=== PATIENT | male | born 1970 | race Two or more races ===

== ENCOUNTER 2017-12-24 08:51 | Inpatient (IN) | payer OTHER ==
[2017-12-24 10:12] VITALS: BMI 29.6
--- NOTE | 2017-12-24 11:59 | HP ---
CIWA Score - CIWA Score Nausea/Vomitin-Mild Nausea/No Vomiting Muscle Tremors: 4-Moderate,w/Arms Extend Anxiety: 4-Mod. Anxious/Guarded Agitation: 4-Moderately Restless Paroxysmal Sweats: 3 Orientation: 0-Oriented Tacttile Disturbances: 0-None Auditory Disturbances: 0-None Visual Disturbances: 0-None Headache: 2-Mild CIWA-Ar Total Score: 18 Admission ROS S - HPI Chief Complaint: I am here detox from alcohol withdrawals. Allergies/Adverse Reactions: Allergies Allergy/AdvReac Type Severity Reaction Status Date / Time No Known Allergies Allergy Verified 12/24/17 11:53 History of Present Illness: pt is a 47yr old male with a history of alcohol dependence seeking detox for treatment. pt also states that his doctor diagnosed him with a fatty liver but unsure all the detail and what medication he is suppose to be on. Pt is also unsure what hypertensive medication he suppose to take. Exam Limitations: No Limitations - Ebola screening Have you traveled outside of the country in the last 21 days: No Have you had contact with anyone from an Ebola affected area: No Have you been sick,other than usual withdrawal symptoms: No Do you have a fever: No - Review of Systems Constitutional: Chills, Diaphoresis, Night Sweats, Changes in sleep, Unintentional Wgt. Loss EENT: reports: Blurred Vision, Tearing, Nose Congestion Respiratory: reports: No Symptoms reported, Productive cough GI: reports: Nausea, Poor Appetite, Poor Fluid Intake, Indigestion : reports: No Symptoms Reported Musculoskeletal: reports: Back Pain Integumentary: reports: Flushing, Sweating Neuro: reports: Headache, Tingling, Tremors Endocrine: reports: Excessive Sweating, Flushing, Intolerance to Cold, Intolerance to Heat Hematology: reports: No Symptoms Reported Psychiatric: reports: Judgement Intact, Mood/Affect Appropiate, Orientated x3, Agitated, Anxious Other Systems: Reviewed and Negative Patient History - Patient Medical History Hx Anemia: No Hx Asthma: No Hx Chronic Obstructive Pulmonary Disease (COPD): No Hx Cancer: No Hx Cardiac Disorders: No Hx Congestive Heart Failure: No Hx Hypertension: Yes Hx Hypercholesterolemia: No Hx Pacemaker: No HX Cerebrovascular Accident: No Hx Seizures: No Hx Dementia: No Hx Diabetes: No Hx Gastrointestinal Disorders: No Hx Liver Disease: No Hx Genitourinary Disorders: No Hx Sexually Transmitted Disorders: No Hx Renal Disease (ESRD): No Hx Thyroid Disease: No Hx Human Immunodeficiency Virus (HIV): No (negative) Hx Hepatitis C: No Hx Depression: Yes Hx Suicide Attempt: No (denies S/H ideation) Hx Bipolar Disorder: No Hx Schizophrenia: No - Patient Surgical History Past Surgical History: No - PPD History Previous Implant?: Yes Documented Results: Negative w/o proof PPD to be Administered?: Yes - Reproductive History Patient is a Female of Child Bearing Age (11 -55 yrs old): No - Smoking Cessation Smoking history: Never smoked Have you smoked in the past 12 months: No Hx Chewing Tobacco Use: No Initiated information on smoking cessation: No - Substance & Tx. History Hx Alcohol Use: Yes Hx Substance Use: No Substance Use Type: Alcohol Hx Substance Use Treatment: No - Substances Abused Alcohol Route: Oral Frequency: Daily Amount used: 3 pts vodka Age of first use: 17 Date of Last Use: 12/22/17 Family Disease History - Family Disease History Family History: Denies Admission Physical Exam [facility] - Vital Signs Vital Signs: Vital Signs - 24 hr 12/24/17 10:10 Temperature 98.8 F Pulse Rate 125 H Respiratory 20 Rate Blood Pressure 168/111 - Physical General Appearance: Yes: Appropriately Dressed, Moderate Distress, Obese, Tremorous, Irritable, Sweating, Anxious HEENTM: Yes: Normal Voice Respiratory: Yes: Lungs Clear, Normal Breath Sounds, No Respiratory Distress Neck: Yes: No masses,lesions,Nodules Breast: Yes: Within Normal Limits Cardiology: Yes: Regular Rhythm, Regular Rate, S1, S2, Tachycardia Abdominal: Yes: Normal Bowel Sounds, Non Tender, Soft Genitourinary: Yes: Within Normal Limits Back: Yes: Normal Inspection Musculoskeletal: Yes: Back pain Extremities: Yes: Normal Capillary Refill, Non-Tender, Tremors Neurological: Yes: psych assistant II-XII NML intact, Fully Oriented, Normal Response Integumentary: Yes: Diaphoresis Lymphatic: Yes: Within Normal Limits - Diagnostic (1) Alcohol dependence with uncomplicated withdrawal Current Visit: Yes Status: Chronic (2) Hypertension Current Visit: Yes Status: Acute Qualifiers: Hypertension type: essential hypertension Qualified Code(s): I10 - Essential (primary) hypertension Cleared for Admission [facility] - Detox or Rehab [facility] Level of Care: Medically Managed Detox Regimen/Protocol: Librium BHS Breath Alcohol Content Breath Alcohol Content: 0 Urine Drug Screen - Results Drug Screen Negative: No Urine Drug Screen Results: BZO-Benzodiazepines
[2017-12-24] MEDS ORDERED: MENTHOL/PHENOL 1 EACH UD MM PRN (12:10)
[2017-12-24] MEDS ORDERED: hydrOXYzine PAMOATE 50 MG CAPSULE (FP) PO PRN (12:10)
[2017-12-24] MEDS ORDERED: guaiFENesin/D-METHORPHAN HB 10 ML UNIT-DOSE CUPS PO PRN (12:10)
[2017-12-24] MEDS ORDERED: LOPERAMIDE HCL 2 MG CAPSULE PO PRN (12:10)
[2017-12-24] MEDS ORDERED: MAGNESIUM HYDROX 2400MG/30ML ORAL SUSPENSION 30 ML CUP PO PRN (12:10)
[2017-12-24] MEDS ORDERED: MAGNESIUM CITRATE 300 ML BOTTLE PO PRN (12:10)
[2017-12-24] MEDS ORDERED: chlordiazePOXIDE HCL 25 MG CAPSULE PO PRN (12:10)
[2017-12-24] MEDS ORDERED: MAG HYDROX/AL HYDROX/SIMETH 30 ML UNIT-DOSE CUP PO PRN (12:10)
[2017-12-24] MEDS ORDERED: P-EPHED 60MG/TRIPROLIDI 2.5MG TABLET PO PRN (12:10)
[2017-12-24] MEDS ORDERED: ACETAMINOPHEN 325 MG TABLET (FP) PO PRN (12:10)
[2017-12-24] MEDS ORDERED: chlordiazePOXIDE HCL 25 MG CAPSULE PO ONE (12:32)
[2017-12-24] MEDS ORDERED: cloNIDine HCL 0.1 MG TABLET PO ONE (12:32)
--- NOTE | 2017-12-24 13:19 | CONSULT ---
[facility] Psychiatric Consult - Data Date of interview: 12/24/17 Admission source: [facility] Identifying data: This is 47 years old male, [place] speaking, with no psychiatric hospitalization history, intoxicated with Alcohol, Nicotine, Benzodiazepins Substance Abuse History: - Smoking Cessation. Smoking history: Never smoked. Have you smoked in the past 12 months: No. Hx Chewing Tobacco Use: No. Initiated information on smoking cessation: No. - Substance & Tx. History. Hx Alcohol Use: Yes. Hx Substance Use: No. Substance Use Type: Alcohol. Hx Substance Use Treatment: No. - Substances Abused. Alcohol. Route: Oral. Frequency: Daily. Amount used: 3 pts vodka. Age of first use: 17. Date of Last Use: 12/22/17 Medical History: HTN Psychiatric History: DENIES P[AST PSYCHIATRIC HISTORY, REPORTS NO MEDICATIONS TAKING PRIOR TO ADMISSION Physical/Sexual Abuse/Trauma History: Denies Additional Comment: Observation. Detox Unit Care Protocol Mental Status Exam - Mental Status Exam Alert and Oriented to: Person Cognitive Function: Fair Patient Appearance: Unkempt Mood: Apprehensive Affect: Mood Congruent Patient Behavior: Cooperative Speech Pattern: Appropriate Voice Loudness: Mildly Soft/Quiet Thought Process: Goal Oriented Thought Disorder: Being Controlled Hallucinations: Denies Suicidal Ideation: Denies Homicidal Ideation: Denies Insight/Judgement: Fair Sleep: Difficulty falling asleep Appetite: Weight gain Muscle strength/Tone: Normal Gait/Station: Normal Additional Comments: Observation. Detox Unit Care Protocol Psychiatric Findings - Problem List ([place] 1, 2,3) (1) Alcohol-induced anxiety disorder Current Visit: Yes Status: Acute (2) Nicotine dependence Current Visit: Yes Status: Acute (3) Drug-induced mood disorder Current Visit: Yes Status: Suspected (4) Hypertension Current Visit: Yes Status: Acute Qualifiers: Hypertension type: essential hypertension Qualified Code(s): I10 - Essential (primary) hypertension - Initial Treatment Plan Initial Treatment Plan: Observation. Detox Unit Care Protocol
--- NOTE | 2017-12-24 17:41 | EKG ---
Test Reason : Blood Pressure : / mmHG Vent. Rate : 101 BPM Atrial Rate : 101 BPM P-R Int : 220 ms QRS Dur : 072 ms QT Int : 366 ms P-R-T Axes : 064 002 033 degrees QTc Int : 474 ms SINUS TACHYCARDIA WITH 1ST DEGREE A-V BLOCK NONSPECIFIC ST AND T WAVE ABNORMALITY ABNORMAL ECG NO PREVIOUS ECGS AVAILABLE Confirmed by JESU EDGE MD ([id number]) on 12/24/2017 5:41:30 PM Referred By: Confirmed By:JESU EDGE MD
[2017-12-24 18:06] LABS: URINE APPEARANCE CLEAR; URINE BILIRUBIN NEGATIVE (NEGATIVE); URINE BLOOD NEGATIVE (NEGATIVE); URINE COLOR YELLOW; URINE GLUCOSE (UA) NEGATIVE (NEGATIVE); URINE KETONE TRACE (NEGATIVE); URINE LEUK ESTERASE NEGATIVE (NEGATIVE); URINE NITRITE NEGATIVE (NEGATIVE); URINE UROBILINOGEN NEGATIVE mg/dL (0.2-1.0)
[2017-12-24 18:08] LABS: URINE PROTEIN 1+ (NEGATIVE)
[2017-12-24 18:10] LABS: URINE MUCUS RARE
[2017-12-24] MEDS: chlordiazePOXIDE HCL 25 MG CAPSULE PO SCH ×2 (18:11→22:19)
[2017-12-24] MEDS: THIAMINE HCL 100 MG TABLET (FP) PO SCH (22:19)
[2017-12-25] MEDS: chlordiazePOXIDE HCL 25 MG CAPSULE PO SCH ×4 (05:57→22:26)
--- NOTE | 2017-12-25 09:50 | PN ---
S CIWA - CIWA Score Nausea/Vomitin Muscle Tremors: 3 Anxiety: 3 Agitation: 3 Paroxysmal Sweats: 1-Minimal Palms Moist Orientation: 0-Oriented Tacttile Disturbances: 1-Very Mild Itch/Numbness Auditory Disturbances: 1-Very Mild Visual Disturbances: 0-None Headache: 2-Mild CIWA-Ar Total Score: 17 BHS Progress Note (SOAP) Subjective: ALERT,IRRITABLE,ANXIOUS,INTERRUPTED SLEEP,TREMOR Objective: 12/25/17 09:48 Vital Signs Temperature 98.8 F 12/25/17 06:00 Pulse Rate 89 12/25/17 06:00 Respiratory Rate 18 12/25/17 06:00 Blood Pressure 142/90 12/25/17 06:00 O2 Sat by Pulse Oximetry (%) EKG SINUS TACHYCARDIA 101/MIN NO CHEST PAIN,NO SOB,NO DIZZINESS Laboratory Last Values Urine Color Yellow 12/24/17 16:00 Urine Appearance Clear 12/24/17 16:00 Urine pH 6.0 (5.0-8.0) 12/24/17 16:00 Ur Specific [place] 1.025 (1.001-1.035) 12/24/17 16:00 Urine Protein 1+ (NEGATIVE) H 12/24/17 16:00 Urine Glucose (UA) Negative (NEGATIVE) 12/24/17 16:00 Urine Ketones Trace (NEGATIVE) H 12/24/17 16:00 Urine Blood Negative (NEGATIVE) 12/24/17 16:00 Urine Nitrite Negative (NEGATIVE) 12/24/17 16:00 Urine Bilirubin Negative (NEGATIVE) 12/24/17 16:00 Urine Urobilinogen Negative mg/dL (0.2-1.0) 12/24/17 16:00 Ur Leukocyte Esterase Negative (NEGATIVE) 12/24/17 16:00 Urine WBC (Auto) 2 /hpf (3-5) 12/24/17 16:00 Urine RBC (Auto) 3 /hpf (0-3) 12/24/17 16:00 Urine Mucus Rare 12/24/17 16:00 HIV 1&2 Antibody Screen Negative 12/24/17 12:35 HIV P24 Antigen Negative 12/24/17 12:35 LABS PENDING Assessment: 12/25/17 09:49 WITHDRAWAL SYMPTOM Plan: CONTINUE DETOX
[2017-12-25 10:30] LABS: HEMATOCRIT 42.1 % (35.4-49); HEMOGLOBIN 13.3 GM/dL (11.7-16.9); MCH 28.7 pg (25.7-33.7); MCHC 31.7 g/dl (32.0-35.9); MEAN CELL VOLUME 90.6 fl (80-96); MEAN PLT VOLUME 8.1 fl (7.5-11.1); PLATELET COUNT 144 K/MM3 (134-434); RBC 4.64 M/mm3 (4.00-5.60); RDW 16.3 % (11.9-15.9); WHITE BLOOD COUNT 7.3 K/mm3 (4.0-10.0)
[2017-12-25 10:35] LABS: CHLORIDE 102 mmol/L (98-107); POTASSIUM 3.5 mmol/L (3.5-5.1); SODIUM 139 mmol/L (136-145)
[2017-12-25] MEDS: PRENATAL VITAMINS W/ FOLIC ACID TABLET (FP) PO SCH (10:45)
[2017-12-25 10:58] LABS: ALBUMIN 3.9 g/dl (3.4-5.0); ALK PHOS 76 U/L (45-117); ANION GAP 11 (8-16); BILIRUBIN,TOTAL 1.3 mg/dL (0.2-1.0); BLOOD UREA NITROGEN 5 mg/dL (7-18); CO2 26 mmol/L (21-32); CREATININE 0.8 mg/dL (0.7-1.3); GLUCOSE,RANDOM 120 mg/dL (74-106); SGOT/AST 50 U/L (15-37); SGPT/ALT 33 U/L (12-78)
[2017-12-25] MEDS ORDERED: PNEUMOC 13-VAL CONJ-DIP CRM/PF 0.5 ML DISP.SYRIN IM ONE (12:00)
[2017-12-25] MEDS ORDERED: PNEUMOCOCCAL 23 VACCINE 0.5 ML VIAL IM ONE (12:00)
[2017-12-25] MEDS ORDERED: FLU VACCINE QUAD 60 MCG/0.5 ML (MDV 17-18) IM ONE (12:00)
[2017-12-25] MEDS: IBUPROFEN 400 MG TABLET (FP) PO PRN (12:48)
[2017-12-25] MEDS: THIAMINE HCL 100 MG TABLET (FP) PO SCH (22:26)
[2017-12-26] MEDS: chlordiazePOXIDE HCL 25 MG CAPSULE PO SCH ×2 (05:51→10:41)
[2017-12-26] MEDS: PRENATAL VITAMINS W/ FOLIC ACID TABLET (FP) PO SCH (10:41)
--- NOTE | 2017-12-26 10:47 | PN ---
S CIWA - CIWA Score Nausea/Vomitin Muscle Tremors: 3 Anxiety: 3 Agitation: 2 Paroxysmal Sweats: 1-Minimal Palms Moist Orientation: 0-Oriented Tacttile Disturbances: 1-Very Mild Itch/Numbness Auditory Disturbances: 1-Very Mild Visual Disturbances: 0-None Headache: 2-Mild CIWA-Ar Total Score: 16 BHS Progress Note (SOAP) Subjective: ALERT,IRRITABLE,ANXIOUS,INTERRUPTED SLEEP,TREMOR Objective: 12/26/17 10:45 Vital Signs Temperature 98.1 F 12/26/17 09:51 Pulse Rate 115 H 12/26/17 09:51 Respiratory Rate 18 12/26/17 09:51 Blood Pressure 145/98 12/26/17 09:51 O2 Sat by Pulse Oximetry (%) Laboratory Last Values WBC 7.3 K/mm3 (4.0-10.0) 12/25/17 05:50 RBC 4.64 M/mm3 (4.00-5.60) 12/25/17 05:50 Hgb 13.3 GM/dL (11.7-16.9) 12/25/17 05:50 Hct 42.1 % (35.4-49) 12/25/17 05:50 MCV 90.6 fl (80-96) 12/25/17 05:50 MCH 28.7 pg (25.7-33.7) 12/25/17 05:50 MCHC 31.7 g/dl (32.0-35.9) L 12/25/17 05:50 RDW 16.3 % (11.9-15.9) H 12/25/17 05:50 Plt Count 144 K/MM3 (134-434) 12/25/17 05:50 MPV 8.1 fl (7.5-11.1) 12/25/17 05:50 Sodium 139 mmol/L (136-145) 12/25/17 05:50 Potassium 3.5 mmol/L (3.5-5.1) 12/25/17 05:50 Chloride 102 mmol/L (98-107) 12/25/17 05:50 Carbon Dioxide 26 mmol/L (21-32) 12/25/17 05:50 Anion Gap 11 (8-16) 12/25/17 05:50 BUN 5 mg/dL (7-18) L 12/25/17 05:50 Creatinine 0.8 mg/dL (0.7-1.3) 12/25/17 05:50 Creat Clearance w eGFR > 60 (>60) 12/25/17 05:50 POC Glucometer 142 UNITS (80-120) 12/25/17 16:14 Random Glucose 120 mg/dL (74-106) H 12/25/17 05:50 Calcium 9.0 mg/dL (8.5-10.1) 12/25/17 05:50 Total Bilirubin 1.3 mg/dL (0.2-1.0) H 12/25/17 05:50 AST 50 U/L (15-37) H 12/25/17 05:50 ALT 33 U/L (12-78) 12/25/17 05:50 Alkaline Phosphatase 76 U/L (45-117) 12/25/17 05:50 Total Protein 8.0 g/dl (6.4-8.2) 12/25/17 05:50 Albumin 3.9 g/dl (3.4-5.0) 12/25/17 05:50 Urine Color Yellow 12/24/17 16:00 Urine Appearance Clear 12/24/17 16:00 Urine pH 6.0 (5.0-8.0) 12/24/17 16:00 Ur Specific [place] 1.025 (1.001-1.035) 12/24/17 16:00 Urine Protein 1+ (NEGATIVE) H 12/24/17 16:00 Urine Glucose (UA) Negative (NEGATIVE) 12/24/17 16:00 Urine Ketones Trace (NEGATIVE) H 12/24/17 16:00 Urine Blood Negative (NEGATIVE) 12/24/17 16:00 Urine Nitrite Negative (NEGATIVE) 12/24/17 16:00 Urine Bilirubin Negative (NEGATIVE) 12/24/17 16:00 Urine Urobilinogen Negative mg/dL (0.2-1.0) 12/24/17 16:00 Ur Leukocyte Esterase Negative (NEGATIVE) 12/24/17 16:00 Urine WBC (Auto) 2 /hpf (3-5) 12/24/17 16:00 Urine RBC (Auto) 3 /hpf (0-3) 12/24/17 16:00 Urine Mucus Rare 12/24/17 16:00 RPR Titer Nonreactive (NONREACTIVE) 12/25/17 05:50 HIV 1&2 Antibody Screen Negative 12/24/17 12:35 HIV P24 Antigen Negative 12/24/17 12:35 Assessment: 12/26/17 10:47 WITHDRAWAL SYMPTOM Plan: CONTINUE DETOX,BGM MONITORING
[2017-12-26] MEDS: IBUPROFEN 400 MG TABLET (FP) PO PRN (13:44)
[2017-12-26 15:02] VITALS: BP 137/93; PULSE 134; TEMP 99.1
--- NOTE | 2017-12-26 15:53 | DS ---
S Detox Discharge Summary Admission Date: 12/24/17 Discharge Date: 12/26/17 - History Additional Comments: patient did not want to complete treatment darcy release prakash,seen by counselor Pertinent Past History: nicotine dependence hypertension - Physical Exam Results Vital Signs: Vital Signs Temperature 99.1 F 12/26/17 15:01 Pulse Rate 134 H 12/26/17 15:01 Respiratory Rate 18 12/26/17 15:01 Blood Pressure 137/93 12/26/17 15:01 O2 Sat by Pulse Oximetry (%) Pertinent Admission Physical Exam Findings: withdrawal sign and symptom - Medication Discharge Medications: Ambulatory Orders Unobtainable [Unobtainable] 12/24/17 - Diagnosis (1) Alcohol dependence with uncomplicated withdrawal Current Visit: Yes Status: Chronic (2) Alcohol-induced anxiety disorder Current Visit: Yes Status: Acute (3) Hypertension Current Visit: Yes Status: Acute Qualifiers: Hypertension type: essential hypertension Qualified Code(s): I10 - Essential (primary) hypertension (4) Nicotine dependence Current Visit: Yes Status: Acute (5) Drug-induced mood disorder Current Visit: Yes Status: Suspected - AMA Did Patient Leave Against Medical Advice: Yes
--- NOTE | 2017-12-26 15:53 | PN ---
S Progress Note Note: patient did not want to complete treatment,seen by counselor,signed release ama, did not want to wait
[2017-12-26] MEDS ORDERED: chlordiazePOXIDE 5 MG CAPSULE PO SCH (17:00)
[2017-12-27] MEDS ORDERED: chlordiazePOXIDE HCL 10 MG CAPSULE PO SCH (17:00)
== END 2017-12-26 16:25 | disposition left against medical advice (07) | DRG 770 ==
LOC: YASAS 08:51 → Y6N 12:17
PROVIDERS: ADMIT Internal Medicine; ATTEND Internal Medicine
PROC: HZ2ZZZZ Detoxification Services for Substance Abuse Treatment (ICD-10-PCS; principal; 2017-12-24)
DX: F10.230 Alcohol dependence with withdrawal, uncomplicated (principal); F10.280 Alcohol dependence with alcohol-induced anxiety disorder; F17.210 Nicotine dependence, cigarettes, uncomplicated; F19.24 Other psychoactive substance dependence with psychoactive substance-induced mood disorder; I10 Essential (primary) hypertension; R00.0 Tachycardia, unspecified; E66.9 Obesity, unspecified; Z68.29 Body mass index [BMI] 29.0-29.9, adult
CPT/HCPCS: 36415; 80053; 81003; 81015; 82962; 85027; 86593; 87389; 90688; 90732; 93005; 93010; G0008; G0009; J0735